=== PATIENT | male | born 1965 | race Caucasian/White ===

== ENCOUNTER 2019-02-07 08:12 | Emergency (ER) | payer SELFPAY ==
[2019-02-07] MEDS ORDERED: CYCLOBENZAPRINE 10 MG TAB ONE (08:49)
[2019-02-07] MEDS ORDERED: IBUPROFEN 400 MG TAB ONE (08:49)
[2019-02-07 08:58] LABS: Urine Blood TRACE (NEG); Urine Glucose 2+ (NEG); Urine Protein NEGATIVE (NEG); Urine Specific Gravity 1.015 (1.005-1.030)
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
== END 2019-02-07 10:42 | disposition home or self-care (01) ==
LOC: ER 08:12
DX: M79.10 Myalgia, unspecified site (principal); M54.2 Cervicalgia; V49.9XXA Car occupant (driver) (passenger) injured in unspecified traffic accident, initial encounter; E11.9 Type 2 diabetes mellitus without complications; Z79.84 Long term (current) use of oral hypoglycemic drugs; Z72.0 Tobacco use
CPT/HCPCS: 81003; 99284